=== PATIENT | male | born 1990 | race Caucasian/White ===

== ENCOUNTER 2019-04-20 21:17 | Emergency (ER) | payer OTHER ==
[2019-04-20] MEDS ORDERED: PANTOPRAZOLE 20 MG TABLET (FP) PO ONE (21:25)
[2019-04-20] MEDS ORDERED: MAG HYDROX/AL HYDROX/SIMETH 30 ML UNIT-DOSE CUP PO ONE (21:25)
[2019-04-20] MEDS ORDERED: MAG HYDROX/AL HYDROX/SIMETH 30 ML UNIT-DOSE CUP ONE (21:30)
[2019-04-20] MEDS ORDERED: PANTOPRAZOLE 40 MG TABLET (FP) ONE (21:30)
[2019-04-20 21:40] VITALS: BP 142/95; PULSE 87; TEMP 99; BMI 25.7
[2019-04-20 22:06] LABS: BASO % 0.4 % (0-2.0); EOS % 0.4 % (0-4.5); HEMATOCRIT 48.4 % (35.4-49); HEMOGLOBIN 16.2 GM/dl (11.7-16.9); LYMPH % 21.1 % (8-40); MCHC 33.4 g/dl (32.0-35.9); MEAN CELL VOLUME 92.7 fl (80-96); MONO % 6.1 % (3.8-10.2); PLATELET COUNT 227 K/MM3 (134-434); RBC 5.22 M/mm3 (4.00-5.60); RDW 11.8 % (11.9-15.9); WHITE BLOOD COUNT 9.2 K/mm3 (4.0-10.8)
--- NOTE | 2019-04-20 22:15 | PDOC ---
Documentation entered by Kiera Dent SCRIBE, acting as scribe for Berenice Alanis MD. Berenice Alanis MD: This documentation has been prepared by the Jailene bassett Andrys, SCRIBE, under my direction and personally reviewed by me in its entirety. I confirm that the documentation accurately reflects all work, treatment, procedures, and medical decision making performed by me. History of Present Illness - General Chief Complaint: Pain, Acute Stated Complaint: CHEST AND ABDOMINAL PAIN SINCE SUNDAY Time Seen by Provider: 04/20/19 21:18 History Source: Patient Exam Limitations: No Limitations - History of Present Illness Initial Comments: 04/20/19 21:39 The patient is a 29 year old male with a significant past medical history of gastritis who presents to the ED with 6 days of abdominal pain. Patient states he ate spicy food and a can of soda on Sunday (04/14/19). Since then, the patient reports mid abdominal pain. He also reports an episode of dark colored stool on Sunday. Patient reports taking prilosec and pepto bismol with no relief of present symptoms. Patient also reports one episode of a deep pulse around 5am last night. He also reports right sided chest pain. Denies fever or chills. Denies nausea, vomiting, or diarrhea. Denies any other symptoms. Past History - Past Medical History Allergies/Adverse Reactions: Allergies Allergy/AdvReac Type Severity Reaction Status Date / Time No Known Allergies Allergy Verified 04/20/19 21:22 Home Medications: Ambulatory Orders No Home Medications 0 dose .ROUTE UTDICT 07/02/12 Ranitidine HCl [Zantac] 300 mg PO DAILY #30 tablet 04/20/19 - Immunization History Td Vaccination: Yes Immunization Up to Date: Yes - Psycho Social/Smoking Cessation Hx Smoking Status: No Smoking History: Never smoked Years of Tobacco Use: 0 Number of Cigarettes Smoked Daily: 0 Cigars Per Day: 0 Review of Systems - Review of Systems Able to Perform ROS?: Yes Comments:: 04/20/19 21:39 CONSTITUTIONAL: Absent: fever, chills, diaphoresis, generalized weakness, malaise, loss of appetite HEENT: Absent: rhinorrhea, nasal congestion, throat pain, throat swelling, difficulty swallowing, mouth swelling, ear pain, eye pain, visual Changes CARDIOVASCULAR: + deep pulse, chest pain Absent: syncope, lightheadedness, peripheral edema RESPIRATORY: Absent: cough, shortness of breath, dyspnea with exertion, orthopnea, wheezing, stridor, hemoptysis GASTROINTESTINAL: + abdominal pain, dark colored stool Absent: abdominal distension, nausea, vomiting, diarrhea, constipation, hematochezia GENITOURINARY: Absent: dysuria, frequency, urgency, hesitancy, hematuria, flank pain, genital pain MUSCULOSKELETAL: Absent: myalgia, arthralgia, joint swelling SKIN: Absent: rash, itching, pallor HEMATOLOGIC/IMMUNOLOGIC: Absent: easy bleeding, easy bruising, lymphadenopathy, frequent infections ENDOCRINE: Absent: unexplained weight gain, unexplained weight loss, heat intolerance, cold intolerance NEUROLOGIC: Absent: headache, focal weakness or paresthesias, dizziness, unsteady gait, seizure, mental status changes, bladder or bowel incontinence PSYCHIATRIC: Absent: anxiety, depression, suicidal or homicidal ideation, hallucinations. All Other Systems: Reviewed and Negative *Physical Exam - Vital Signs Last Vital Signs Temp Pulse Resp BP Pulse Ox 99 F 87 16 142/95 100 04/20/19 21:25 04/20/19 21:25 04/20/19 21:25 04/20/19 21:25 04/20/19 21:25 - Physical Exam Comments: 04/20/19 21:39 GENERAL: Well developed, well nourished. Awake and alert. No acute distress. HEENT: Normocephalic, atraumatic. PERRLA, EOMI. No conjunctival pallor. Sclera are non- icteric. Moist mucous membranes. Oropharynx is clear. NECK: Supple. Full ROM. No JVD. Carotid pulses 2+ and symmetric, without bruits. No thyromegaly. No lymphadenopathy. CARDIOVASCULAR: Regular rate and rhythm. No murmurs, rubs, or gallops. Distal pulses are 2+ and symmetric. PULMONARY: No evidence of respiratory distress. Lungs clear to auscultation bilaterally. No wheezing, rales or rhonchi. ABDOMINAL: Soft. Non-tender. Non-distended. No rebound or guarding. No organomegaly. Normoactive bowel sounds. MUSCULOSKELETAL Normal range of motion at all joints. No bony deformities or tenderness. No CVA tenderness. EXTREMITIES: No cyanosis. No clubbing. No edema. No calf tenderness. SKIN: Warm and dry. Normal capillary refill. No rashes. No jaundice. NEUROLOGICAL: Alert, awake, appropriate. Cranial nerves 2-12 intact. No deficits to light touch and temperature in face, upper extremities and lower extremities. No motor deficits in the in face, upper extremities and lower extremities. Normoreflexic in the upper and lower extremities. Normal speech. Toes are down- going bilaterally. Gait is normal without ataxia. PSYCHIATRIC: Cooperative. Good eye contact. Appropriate mood and affect. ED Treatment Course - LABORATORY CBC & Chemistry Diagram: 04/20/19 21:39 04/20/19 21:39 - ADDITIONAL ORDERS Additional order review: 04/20/19 21:39 RBC 5.22 MCV 92.7 MCHC 33.4 RDW 11.8 L MPV 10.0 Neutrophils % 72.0 Lymphocytes % 21.1 Monocytes % 6.1 Eosinophils % 0.4 Basophils % 0.4 - RADIOLOGY Radiology Studies Ordered: Category Date Time Status ABDOMEN FLAT & UPRIGHT [RAD] Stat Radiology 04/20/19 21:22 Taken CHEST PA & LAT [RAD] Stat Radiology 04/20/19 21:21 Taken - Medications Given in the ED: ED Medications Discontinued Medications Generic Name Dose Route Start Last Admin Trade Name Freq PRN Reason Stop Dose Admin Al Hydroxide/Mg Hydroxide 30 ml 04/20/19 21:25 04/20/19 21:32 Mylanta Oral Suspension - PO 04/20/19 21:26 30 ml ONCE ONE Administration Pantoprazole Sodium 20 mg 04/20/19 21:25 04/20/19 21:32 Protonix - PO 04/20/19 21:26 20 mg ONCE ONE Administration Medical Decision Making - Medical Decision Making 04/20/19 22:45 Pt has normal CXR and abd XR and normal exam, and normal EKG and normal labs. He will be sent home with antacids. Follow with PMD and GI Discharge - Discharge Information Problems reviewed: Yes Clinical Impression/Diagnosis: Gas pain Condition: Stable - Additional Discharge Information Prescriptions: Ranitidine HCl [Zantac] 300 mg PO DAILY #30 tablet - Follow up/Referral - Patient Discharge Instructions Patient Printed Discharge Instructions: Eating a Diet Rich in Fruits and Vegetables - Post Discharge Activity
[2019-04-20 22:26] LABS: ALBUMIN 4.7 g/dl (3.4-5.0); BILIRUBIN,TOTAL 0.7 mg/dl (0.2-1); CALCIUM 9.7 mg/dl (8.5-10); CREATININE 0.8 mg/dl (0.55-1.3); POTASSIUM 4.1 mmol/L (3.5-5.1); TOT PROT 8.3 g/dl (6.4-8.2)
--- NOTE | 2019-04-21 10:15 | EKG ---
Test Reason : Blood Pressure : / mmHG Vent. Rate : 073 BPM Atrial Rate : 073 BPM P-R Int : 154 ms QRS Dur : 100 ms QT Int : 360 ms P-R-T Axes : 040 -34 020 degrees QTc Int : 396 ms NORMAL SINUS RHYTHM LEFT AXIS DEVIATION ABNORMAL ECG NO PREVIOUS ECGS AVAILABLE Confirmed by VERA LEON MD ([id number]) on 04/21/2019 10:14:59 AM Referred By: ROEL Confirmed By:VERA LEON MD
== END 2019-04-20 22:48 | disposition home or self-care (01) ==
LOC: FER 21:17
DX: R14.1 Gas pain (principal)
CPT/HCPCS: 36415; 71046-TC-FY; 74019-TC-FY; 80053; 85025; 93005; 99282-25